=== PATIENT | male | born 1985 | race Caucasian/White ===

== ENCOUNTER 2016-10-06 22:12 | Emergency (ER) | payer SELFPAY ==
[~2016-10-06] VITALS: Ht 165.1 cm; Wt 81.5 kg
[2016-10-06 23:09] VITALS: Ht 165.1 cm; Wt 81.5 kg
[2016-10-07] MEDS ORDERED: HYDROCODONE/APAP (5/325) TAB PO ONE (03:30)
--- NOTE | 2016-10-07 03:53 | ERD ---
ER Documentation Chief Complaint Date/Time DATE: 10/07/16 TIME: 03:44 Chief Complaint Swelling left cheek HPI 31-year-old male presented chief complaint of left sided facial swelling and pain 2 days. Patient states that he's also had a sore throat and fever. He denies dental pain, neck stiffness, ear discharge, loss in hearing, drooling, difficulty swallowing, shortness of breath, and vocal changes. He's been taking [id number] cold medications and Tylenol for relief of his fever and pain. However he states that his pain has increased in severity, and is currently an 8 out of 10. He denies history of diabetes mellitus. He denies recent travel. No recent antibiotic use. ROS All systems reviewed and are negative except as per history of present illness. Allergies Allergies: Coded Allergies: No Known Allergy (Unverified , 10/06/16) PMhx/Soc Medical and Surgical Hx: pt denies Medical Hx, pt denies Surgical Hx Hx Alcohol Use: No Hx Substance Use: No Hx Tobacco Use: No Smoking Status: Never smoker Physical Exam Vitals Vital Signs Date Time Temp Pulse Resp B/P Pulse Ox O2 Delivery O2 Flow Rate FiO2 10/06/16 23:09 98.8 81 20 135/69 100 Physical Exam GENERAL: Non-toxic. No apparent signs of distress. HEENT: Atraumatic. Tenderness to palpation over the left parotid gland. Bilateral eyes are PERRL EOM intact. Normal conjunctiva, no injection. No eyelid or lower eyelid swelling noted. Ears: Normal tympanic membrane, no erythema or bulging. No ear canal swelling. No ear discharge. Nose: no nasal discharge. Throat: Oropharynx normal. Tongue pink and moist. Tonsillar erythema with No tonsillar swelling or tonsillar exudates. No drooling. No pooling of secretions. Uvula is midline. No lymphadenopathy. LUNGS: Clear to auscultation. No accessory muscle use. No wheezing, no crackles. No signs or symptoms of respiratory distress. HEART: Regular rate and rhythm. No murmurs, clicks, rubs or gallops. NEURO: Cranial nerves are grossly intact. Normal mental status for age. Good muscle tone. SKIN: Mild swelling over the left cheek .no erythema or calor. There is no apparent rash, petechiae, erythema. Good skin turgor. Results 24 hrs Current Medications Medications (Trade) Dose Ordered Sig/Lisa Route PRN Reason Start Time Stop Time Status Last Admin Dose Admin Acetaminophen/ Hydrocodone Bitart ([place] (5/325)) 1 tab ONCE ONCE PO 10/07/16 03:30 10/07/16 03:31 DC Amoxicillin/ Clavulanate Potassium (Augmentin) 875 mg ONCE ONCE PO 10/07/16 04:00 10/07/16 04:01 Procedures/MDM Patient presented chief complaint of left sided facial swelling and pain. On examination his oropharynx is normal, uvula was midline with secretions. No tonsillar edema or exudate. The left TM was not erythematous or is no swelling in the ear canal, no discharge. Patient did have mild tenderness to palpation over the left parotid gland. He has no dental sensitivity or signs of dental abscess. Expect the patient that symptoms may be due to either a viral pharyngitis or acute parotitis. Since she complains of severe sore throat and left-sided facial pain I will be prescribing Augmentin, which covers for both pharyngitis and parotitis. At this time low suspicion for epiglottitis, cellulitis, parotid or facial abscess, dental abscess, peritonsillar abscess, retropharyngeal abscess, meningitis, otitis media, otitis externa, and sepsis. At this time patient still for discharge and outpatient management. Advised to follow-up with PCP in one to 2 days. Departure Diagnosis: Primary Impression: Facial swelling Additional Impression: Parotitis Condition: Good Allie Cullen PA-C Oct 07, 2016 03:53
[2016-10-07] MEDS ORDERED: PSEU120T51 PO (03:55)
[2016-10-07] MEDS ORDERED: IBUP-1542 PO (03:55)
[2016-10-07] MEDS ORDERED: AMOX1TAB10 PO (03:55)
[2016-10-07] MEDS ORDERED: AMOXICILLIN/CLAV 875 MG TAB PO ONE (04:00)
== END 2016-10-07 04:06 | disposition home or self-care (01) ==
LOC: FTE 22:12
DX: R60.0 Localized edema (principal); K11.20 Sialoadenitis, unspecified
CPT/HCPCS: 99283

== ENCOUNTER 2017-08-20 02:58 | Emergency (ER) | END 2017-08-20 08:05 | disposition home or self-care (01) ==

== ENCOUNTER 2018-05-04 11:20 | Emergency (ER) | END 2018-05-04 11:42 | disposition home or self-care (01) ==